=== PATIENT | female | born 1930 | race Caucasian/White ===

== ENCOUNTER 2016-09-10 07:13 | Emergency (ER) | payer OTHER ==
[~2016-09-10] VITALS: Ht 160 cm; Wt 72.3 kg
[~2016-09-10 07:13] MED LIST: BILBERRY500 MG PO; CALCIUM 600 MG1 EAC1 PO; CINNAMON500 MG PO; E-400 C-500 &1 EACH PO; GARLIC1000 MG PO; GLIMEPIRIDE4 MG PO; HYDROCHLOROTHIA25 MG PO; LOTREL 10/21 CAPSULE PO; LOW DOSE ASPIRI81 M1 PO; LYSINE1000 MG PO; METFORMIN HCL1000 M1 PO; NABUMETONE750 MG PO; ONE-A-DAY WOME1 EAC5 PO; TRILIPIX135 MG PO; VITAMIN D35000 UNIT PO; ZOFRAN4 MG PO
[2016-09-10 08:59] LABS: ADD MIUA? YES; BILIRUBIN NEGATIVE; BLOOD MODERATE; COLOR YELLOW ((YELLOW)); GLUCOSE (STRIP) NEGATIVE; KETONES NEGATIVE; LEUKOCYTES LARGE; NITRITE POSITIVE; PROTEIN (STRIP) NEGATIVE; SPECIFIC GRAVITY 1.011 (1.000-1.030); UROBILINOGEN 0.2 MG/DL (0.2-1.0)
[2016-09-10 09:45] LABS: BACTERIA 3+ /HPF; CASTS NONE SEEN /LPF; CRYSTALS NONE SEEN; EPITHELIAL CELLS NONE SEEN /HPF; MUCUS NONE SEEN /LPF
[2016-09-10 12:02] VITALS: BP 170/84
== END 2016-09-10 12:19 | disposition home or self-care (01) ==
LOC: EME 07:13
PROVIDERS: Physician Assistant
PROC: 0T2BX0Z Change Drainage Device in Bladder, External Approach (ICD-10-PCS; principal; 2016-09-10)
DX: T83.091A Other mechanical complication of indwelling urethral catheter, initial encounter (principal); I10 Essential (primary) hypertension; E11.9 Type 2 diabetes mellitus without complications; Z79.84 Long term (current) use of oral hypoglycemic drugs; E78.5 Hyperlipidemia, unspecified; Z90.710 Acquired absence of both cervix and uterus; Z98.890 Other specified postprocedural states; Z79.82 Long term (current) use of aspirin
CPT/HCPCS: 81003; 99281; 99285

== ENCOUNTER → 2016-12-14 | Outpatient (CLI) | payer MEDICARE, OTHER | END | disposition home or self-care (01) | LOC: CDC 10:41 | DX: Z01.810 Encounter for preprocedural cardiovascular examination (principal) | CPT/HCPCS: 93000 ==

== ENCOUNTER → 2017-07-25 | Outpatient (CLI) | payer MEDICARE, OTHER | END | disposition home or self-care (01) | LOC: CDC 09:08 | DX: Z01.810 Encounter for preprocedural cardiovascular examination (principal); N39.498 Other specified urinary incontinence | CPT/HCPCS: 93000 ==